=== PATIENT | female | born 1980 | race Caucasian/White ===

== ENCOUNTER 2017-12-17 22:29 | Emergency (ER) | payer BC ==
[2017-12-17] MEDS ORDERED: methylPREDNISolone Sodium Succinate 125 MG/2 ML SDV IVPUSH ONE (23:01)
[2017-12-17] MEDS ORDERED: Sodium Chloride 0.9% 10 ML Syringe FLUSH PRN (23:01)
--- NOTE | 2017-12-17 23:21 | EDM.PDOC ---
ED HPI GENERAL MEDICAL PROBLEM - General Chief Complaint: Allergic Reaction Stated Complaint: CHEST TIGHTNESS Time Seen by Provider: 12/17/17 22:47 Source of Information: Reports: Patient, RN Notes Reviewed - History of Present Illness INITIAL COMMENTS - FREE TEXT/NARRATIVE: 37-year-old female has been having difficulty with rash for the last several days. Her were vacationing in [place] arriving there 4 days ago. Within a short time of arrival she did begin start noticing what felt like some intermittent facial swelling and even some swelling of her throat. The next day she did start having some chest tightness and difficulty breathing. She did start breaking out in rash primarily her arms neck and face. They came home early yesterday because of worsening symptoms. See her regular doctor earlier today at one of the [facility] on the way home. She was given a Kenalog injection and also started on a Medrol Dosepak. Not feel that the rash is getting any better. Still does continue to have some tightness in her chest and mild difficulty breathing. The rash is quite itchy. She states she has had prior allergic reactions of this nature in the past. She knows that she is allergic to shellfish. She was careful to avoid that type of ingestion while traveling. - Related Data Allergies Allergy/AdvReac Type Severity Reaction Status Date / Time No Known Allergies Allergy Verified 12/17/17 22:42 Home Meds: Home Meds lamoTRIgine 200 mg PO BID 12/17/17 [History] Past Medical History HEENT History: Reports: Impaired Vision Respiratory History: Reports: Asthma [employer] History: Reports: Other OB/BYN History: x1 Neurological History: Reports: Seizure Social & Family History - Family History Family Medical History: Noncontributory - Tobacco Use Smoking Status *Q: Never Smoker - Caffeine Use Caffeine Use: Reports: None - Recreational Drug Use Recreational Drug Use: No ED ROS ALLERGIC REACTION - Review of Systems Review Of Systems: See Below Constitutional: Denies: Fever, Chills HEENT: Reports: Throat Swelling (Mild, gone). Denies: Sinus Problem, Throat Pain Respiratory: Reports: Shortness of Breath (Mild), Wheezing (Mild) Cardiovascular: Reports: Chest Pain (Has had intermittent mild chest tightness) GI/Abdominal: Denies: Abdominal Pain, Diarrhea, Nausea, Vomiting Musculoskeletal: Reports: No Symptoms Skin: Reports: Rash (More severe arms face and neck, persistent, not going away) Neurological: Denies: Numbness, Tingling ED EXAM GENERAL NO PERIP PULSE - Physical Exam Exam: See Below General Appearance: Alert, Mild Distress Eye Exam: Bilateral Eye: PERRL Throat/Mouth: Normal Inspection, Normal Oropharynx Head: Facial Swelling (Mild generalized associated with areas of erythema and rash) Neck: Supple, Full Range of Motion Respiratory/Chest: No Respiratory Distress, Lungs Clear. No: Rhonchi, Wheezing Cardiovascular: Tachycardia Extremities: Normal Inspection, Normal Range of Motion Neurological: Alert, Oriented, No Motor/Sensory Deficits Skin Exam: Warm, Dry, Rash (Fairly intense pinpoint somewhat fine macular rash bilateral forearms left worse than right, erythematous diffuse rash face and neck, mild pinpoint rash bilateral lower anterior extremities, trunk is clear) Course - Vital Signs Last Recorded V/S: Last Vital Signs Temp 97.1 F 12/17/17 22:38 Pulse 103 H 12/17/17 22:38 Resp 18 12/17/17 22:38 BP 128/72 12/17/17 22:38 Pulse Ox 100 12/17/17 22:38 - Orders/Labs/Meds Orders: Active Orders 24 hr Category Date Time Status Peripheral IV Care [RC] . DIRECTED Care 12/17/17 23:02 Active Peripheral IV Insertion Adult [OM.PC] Stat Oth 12/17/17 23:01 Ordered Meds: Medications Discontinued Medications Generic Name Dose Route Start Last Admin Trade Name Freq PRN Reason Stop Dose Admin Methylprednisolone Sodium Succinate 125 mg 12/17/17 23:01 12/17/17 23:12 Solu-Medrol IVPUSH 12/17/17 23:02 125 mg ONETIME ONE Administration Sodium Chloride 10 ml 12/17/17 23:01 12/17/17 23:12 Saline Flush FLUSH 10 ml ASDIRECTED PRN Administration Keep Vein Open - Re-Assessments/Exams Free Text/Narrative Re-Assessment/Exam: 12/18/17 00:55 Have given Solu-Medrol 125 white the. We'll have her take higher dose prednisone for the next 5 days. Discharge instructions as documented. Departure - Departure Time of Disposition: 23:18 Disposition: Home, Self-Care 01 Clinical Impression: Rash due to allergy - Discharge Information Instructions: Pruritus Referrals: Jessi Kruse MD [Primary Care Provider] - Forms: ED Department Discharge Additional Instructions: You have been given Solu-Medrol 125 mg IV while here in the ED. Prednisone 40 mg twice daily for the next 3 days and then 40 mg every morning for the following 2 days. Follow-up clinic if not much better within 3-4 days as expected. It will be best not to put any type of steroid cream on her face. Lubriderm lotions if needed for moisturization. The less you put on your skin right now the better. Use the steroid cream sparingly as needed. Use Lubriderm lotion if needed for moisturization. I would not put any other creams or lotions on your skin at this time with your recurrent hypersensitivity. - My Orders Last 24 Hours: My Active Orders 12/17/17 23:01 Peripheral IV Insertion Adult [OM.PC] Stat 12/17/17 23:02 Peripheral IV Care [RC] . DIRECTED - Assessment/Plan Last 24 Hours: My Active Orders 12/17/17 23:01 Peripheral IV Insertion Adult [OM.PC] Stat 12/17/17 23:02 Peripheral IV Care [RC] . DIRECTED
== END 2017-12-17 23:33 | disposition home or self-care (01) ==
LOC: JD.ED 22:29
DX: R21 Rash and other nonspecific skin eruption (principal); R07.89 Other chest pain; T38.0X5A Adverse effect of glucocorticoids and synthetic analogues, initial encounter
CPT/HCPCS: 96374; 99284-25; J2930; J7050